=== PATIENT | female | born 1980 | race Caucasian/White ===

== ENCOUNTER 2017-11-06 19:02 | Emergency (ER) | payer MEDICAID ==
[~2017-11-06] VITALS: Ht 154.9 cm; Wt 73.5 kg
[2017-11-06 19:19] VITALS: BP 140/71
[2017-11-06 19:47] LABS: Basophils # (auto) 0.1 uL; Basophils % (auto) 0.7 % (0.0-2.0); Eosinophils # (auto) 0.1 uL; Eosinophils % (auto) 0.6 % (0.0-7.0); Hematocrit 39.8 % (36.0-46.0); Hemoglobin 13.4 g/dL (12.2-16.2); Lymphocytes # (auto) 2.7 uL; Lymphocytes % (auto) 21.1 % (10.0-50.0); Mean Corpuscular Hemoglobin 30.7 pg (28.0-32.0); Mean Corpuscular Hgb Conc. 33.6 g/dL (32.0-36.0); Mean Corpuscular Volume 91.5 fL (80.0-100.0); Monocytes # (auto) 0.7 uL; Monocytes % (auto) 5.5 % (0.0-12.0); Neutrophils # (auto) 9.2 uL; Neutrophils % (auto) 72.1 % (37.0-80.0); Nucleated Red Blood Cells % 0.1 %; Platelet Count (auto) 251 10^3/uL (140-450); Red Blood Cells 4.35 10^6/uL (4.0-5.20); Red Cell Distribution Width 12.2 % (11.8-14.3); White Blood Cell 12.7 10^3/uL (4.4-10.8)
[2017-11-06 20:07] LABS: Albumin 3.6 g/dL (3.4-5.0); BUN/Creatinine Ratio 16.9; Bilirubin, Total 0.3 mg/dL (0.2-1.0); Calcium 9.4 mg/dL (8.5-10.1); Potassium 3.8 mmol/L (3.5-5.1); Total Protein 7.6 g/dL (6.4-8.2)
[2017-11-06 20:24] LABS: Urine Bacteria NONE SEEN /hpf (None Seen); Urine Blood Negative /uL (Negative); Urine Specific Gravity 1.011 (1.001-1.035); Urine WBC 2 /hpf (0 - 5)
== END 2017-11-06 23:37 | disposition left against medical advice (07) ==
LOC: ER 19:02
DX: R10.9 Unspecified abdominal pain (principal); Z53.21 Procedure and treatment not carried out due to patient leaving prior to being seen by health care provider
CPT/HCPCS: 36415; 80053; 81001; 83690; 84702; 85025